=== PATIENT | female | born 1990 | race Caucasian/White ===

== ENCOUNTER 2017-12-27 08:39 | Emergency (ER) | payer OTHER ==
[~2017-12-27] VITALS: Ht 170.2 cm; Wt 54.0 kg
[2017-12-27] MEDS ORDERED: IBUPROFEN 600MG TABLET PO ONE (10:15)
[2017-12-27 10:52] VITALS: BP 118/62
== END 2017-12-27 11:00 | disposition home or self-care (01) ==
LOC: ER 08:39
DX: K08.89 Other specified disorders of teeth and supporting structures (principal); F41.9 Anxiety disorder, unspecified; I10 Essential (primary) hypertension; R56.9 Unspecified convulsions; F31.9 Bipolar disorder, unspecified; F17.200 Nicotine dependence, unspecified, uncomplicated; Z88.5 Allergy status to narcotic agent
CPT/HCPCS: 81025; 99282